=== PATIENT | male | born 1965 | race Two or more races ===

== ENCOUNTER 2022-11-06 21:24 | Emergency (ER) | payer SELFPAY ==
[~2022-11-06] VITALS: Ht 182.9 cm; Wt 81.7 kg
[2022-11-06 21:30] VITALS: BP 141/87; PULSE 92; RESP 18; O2SAT 100
[2022-11-08] MEDS ORDERED: CHL25C GT ×2 (11:45→12:19)
[2022-11-08] MEDS ORDERED: ZOFR4T PO (11:45)
== END 2022-11-07 00:30 | disposition left against medical advice (07) ==
LOC: EDBD → ER 21:24
DX: F10.10 Alcohol abuse, uncomplicated (principal); Y90.0 Blood alcohol level of less than 20 mg/100 ml

== ENCOUNTER 2022-11-07 04:25 | Emergency (ER) | payer SELFPAY ==
[~2022-11-07] VITALS: Ht 182.9 cm; Wt 81.8 kg
[2022-11-07 07:45] VITALS: PULSE 82; RESP 14; O2SAT 91
[2022-11-07 14:40] LABS: Basophils # (auto) 0 10 ^3/uL (0-0.2); Basophils % (auto) 0.7 % (0.0-2.0); Eosinophils # (auto) 0 10 ^3/uL (0-0.8); Eosinophils % (auto) 0.9 % (0.0-7.0); Hematocrit 36.9 % (41.0-53.0); Hemoglobin 12.2 g/dL (13.5-17.5); Lymphocytes # (auto) 1.2 10 ^3/uL (0.4-5.4); Lymphocytes % (auto) 27.1 % (10.0-50.0); Mean Corpuscular Hemoglobin 31.6 pg (28.0-32.0); Mean Corpuscular Hgb Conc. 33.2 g/dL (32.0-36.0); Mean Corpuscular Volume 95.3 fL (80.0-100.0); Monocytes # (auto) 0.5 10 ^3/uL (0-1.3); Monocytes % (auto) 11.3 % (0.0-12.0); Neutrophils # (auto) 2.7 10 ^3/uL (1.6-8.6); Nucleated Red Blood Cells % 0.2 %; Red Blood Cells 3.87 10^6/uL (4.5-5.90); Red Cell Distribution Width 14.9 % (11.8-14.3); White Blood Cell 4.5 10^3/uL (4.4-10.8)
[2022-11-07 15:03] LABS: Urine Bacteria FEW /hpf (None Seen); Urine Blood 1+ /uL (Negative); Urine Clarity Clear (Clear); Urine Color Colorless (Yellow); Urine Protein, UAD TRACE (Negative); Urine Specific Gravity 1.005 (1.001-1.035); Urine Urobilinogen Normal (Negative); Urine WBC <1 /hpf (0 - 3); Urine pH 5.5 (5.0-8.0)
[2022-11-07 15:24] LABS: Albumin 3.4 g/dL (3.4-5.0); Calcium 7.9 mg/dL (8.5-10.1); Potassium 3.7 mmol/L (3.5-5.1)
[2022-11-07 15:29] LABS: BUN/Creatinine Ratio 7.8 (10.0-20.0); Bilirubin, Total 0.6 mg/dL (0.2-1.0); Total Protein 6.8 g/dL (6.4-8.2)
[2022-11-07] MEDS ORDERED: chlordiazePOXIDE HCL 25 MG CAP PO ONE (17:45)
[2022-11-07] MEDS ORDERED: FOLIC ACID 1 MG, MULTIPLE VITAMIN 10 ML, MAGNESIUM SULF SDV 50% 8 MEQ, THIAMINE INJ 100... INJ ONE ×5 (18:00)
[2022-11-07 20:12] VITALS: PULSE 76; RESP 15
[2022-11-08] MEDS ORDERED: chlordiazePOXIDE HCL 25 MG CAP PO ONE ×2 (00:45→11:45)
[2022-11-08 07:31] VITALS: BP 128/75; PULSE 73; RESP 14; TEMP 98.7; O2SAT 95
[2022-11-08] MEDS ORDERED: CHL25C GT ×2 (11:45→12:19)
[2022-11-08] MEDS ORDERED: ZOFR4T PO (11:45)
== END 2022-11-08 12:00 | disposition home or self-care (01) ==
LOC: EDBD 04:25 → ER 04:25
DX: F10.129 Alcohol abuse with intoxication, unspecified (principal); Y90.0 Blood alcohol level of less than 20 mg/100 ml
CPT/HCPCS: 36415; 80053; 80320; 81001; 85025; 96365; 96366